=== PATIENT | female | born 1975 | race Caucasian/White ===

== ENCOUNTER 2016-12-17 00:51 | Inpatient (IN) ==
--- NOTE | 2016-12-17 01:15 | EKG Report ---
Test Performed on : 12/17/2016 00:57:13 AM Test Reason : CHEST PAIN Blood Pressure : / mmHG Vent. Rate : 084 BPM Atrial Rate : 084 BPM P-R Int : 168 ms QRS Dur : 084 ms QT Int : 368 ms P-R-T Axes : 047 055 042 degrees QTc Int : 434 ms Normal sinus rhythm. Low voltage QRS Borderline ECG When compared with ECG of 06-AUG-2016 08:54, No significant change was found Unconfirmed Result
[2016-12-17] MEDS ORDERED: SODIUM CHLORIDE 0.9% INJ ONE ×3 (01:29→13:54)
[2016-12-17] MEDS ORDERED: PEPCID IV ONE (01:29)
[2016-12-17] MEDS ORDERED: G.I. COCKTAIL PO ONE (01:29)
[2016-12-17] MEDS ORDERED: REGLAN IV ONE (01:31)
[2016-12-17] MEDS ORDERED: ZOFRAN IV ONE (01:32)
[2016-12-17 01:36] LABS: MANUAL DIFF NEEDED? NO
[2016-12-17 01:40] LABS: BASO% 0.4 % (0.0-0.8); EOS# 0.05 X1000 (0.0-0.7); EOS% 0.6 % (0.0-10.0); HEMATOCRIT 38.8 % (37.0-47.0); HEMOGLOBIN 12.9 g/dL (12.0-16.0); IMM GRAN# 0.01 X1000 (0.0-0.04); IMM GRAN% 0.1 % (0.0-0.5); LYMPH# 2.71 X1000 (1.2-3.4); LYMPH% 34.8 % (20.5-51.1); MCH 29.7 PG (27-31); MCHC 33.2 g/dL (33-37); MCV 89.2 FL (81-99); MONO% 7.7 % (1.7-9.3); MPV 9.9 FL (7.4-10.4); NEUT% 56.4 % (42.2-75.2); PLT 238 X1000 (130-400); RBC 4.35 XMIL (4.2-5.4)
[2016-12-17] MEDS ORDERED: NITROGLYCERIN TOP ONE (02:30)
[2016-12-17 02:36] LABS: AGAP 11; ALKALINE PHOSPHATASE 53 U/L (32-104); BUN 13 mg/dL (8-22); CALCIUM 8.9 mg/dL (8.8-10.2); CHLORIDE 104 mmol/L (98-107); CK PROFILE 66 U/L (24-173); GOT 26 U/L (10-30); GPT 27 U/L (10-36); MAGNESIUM 2.1 mg/dL (1.5-2.7); POTASSIUM 3.4 mmol/L (3.5-5.1); SODIUM 138 mmol/L (136-145); TCO2 23 mmol/L (25-35); TOTAL PROTEIN 6.7 g/dL (6.3-8.3)
[2016-12-17 02:48] LABS: COSMO 276
[2016-12-17] MEDS ORDERED: MAALOX PLUS LIQUID PO ONE (02:56)
[2016-12-17] MEDS ORDERED: MORPHINE IV ONE (02:57)
[2016-12-17] MEDS ORDERED: BENADRYL IV ONE (02:57)
--- NOTE | 2016-12-17 04:27 | EKG Report ---
Test Performed on : 12/17/2016 04:16:55 AM Test Reason : pain Blood Pressure : / mmHG Vent. Rate : 065 BPM Atrial Rate : 065 BPM P-R Int : 172 ms QRS Dur : 088 ms QT Int : 408 ms P-R-T Axes : 045 060 052 degrees QTc Int : 424 ms Normal sinus rhythm. Low voltage QRS Borderline ECG When compared with ECG of 17-DEC-2016 00:57, (Unconfirmed) No significant change was found Unconfirmed Result
[2016-12-17] MEDS ORDERED: MORPHINE IV PRN (05:18)
[2016-12-17] MEDS ORDERED: LR 1,000 ML IV ONE (05:18)
--- NOTE | 2016-12-17 05:18 | PROVIDER DOCUMENTATION ---
This chart was entered by Panchito Krueger Scribe, acting as scribe for Eric Lombardi MD. HPI-Abdominal Pain/GI Problem - General Chief Complaint: Chest Pain Stated Complaint: SOB/CHEST PAIN Time Seen by Provider: 12/17/16 01:15 Source: patient Allergies/Adverse Reactions: Patient Allergies Allergy/AdvReac Type Severity Reaction Status Date / Time acetaminophen Allergy ITCHING Verified 05/27/16 11:39 [From Darvocet-N] oxycodone HCl * Allergy ITCHING Verified 05/27/16 11:39 [From Percocet] propoxyphene napsylate * Allergy ITCHING Verified 05/27/16 11:39 [From Darvocet-N] Sulfa (Sulfonamide Allergy Unknown Verified 05/27/16 11:39 Antibiotics) tramadol Allergy PALPITATION Verified 05/27/16 11:39 S aspirin AdvReac VOMITING Verified 12/17/16 01:08 nitroglycerin AdvReac DROPS Verified 05/27/16 11:39 BLOOD PRESSURE TOO QUICKLY Home Medications: Home Medication List Medication Instructions Recorded Confirmed Last Taken Type Cyanocobalamin (Vitamin B-12) 1,000 mcg PO DAILY 07/04/15 12/17/16 08/04/16 09: 00 History [Vitamin B12] Omeprazole 40 mg PO DAILY #30 endy. 05/27/16 12/17/16 08/04/16 07:00 Rx L.acidoph,Paracasei, B.lactis 1 each PO DAILY 08/05/16 12/17/16 Unknown History [Probiotic] Levothyroxine [Synthroid] 150 microgm PO DAILY@0700 #30 08/07/16 12/17/16 Unknown Rx tablet Hydrocodone/Acetaminophen [[place]ity 1 tab PO PRN PRN 12/17/16 12/17/16 Unknown History 7.5-325 Tablet] Lorazepam 0.5 mg PO PRN PRN 12/17/16 12/17/16 Unknown History - History of Present Illness-ABD Abdominal Pain Onset Location: reports: epigastric Pain Radiation: reports: no radiation Quality of Pain: reports: aching Severity in ED: reports: mild Onset/Duration: denies: 3 days ago, 4 days ago Activities at Onset: reports: cold exposure Review of Systems - Adult - REVIEW OF SYSTEMS - ADULT Constitutional: reports: no symptoms reported Eyes: reports: no symptoms reported Ears, Nose, Mouth & Throat: reports: no symptoms reported Cardiovascular: reports: no symptoms reported Respiratory: reports: no symptoms reported Gastrointestinal: reports: abdominal pain Genitourinary: reports: no symptoms reported Musculoskeletal: reports: no symptoms reported Integumentary: reports: no symptoms reported Neurological: reports: no symptoms reported Psychiatric: reports: no symptoms reported Endocrine: reports: no symptoms reported Hematologic/Lymphatic: reports: no symptoms reported Allergic/Immunologic: reports: no symptoms reported All Other Systems: Reviewed and Negative Past History - Adult - PAST MEDICAL HISTORY-ADULT Review of Records: reports: Old Records Reviewed, Nursing Assessment Review, Medications Reviewed, Social history reviewed & non-contributory. 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) Respiratory: reports: denies history Gastrointestinal: reports: IBS, other (gastritis) Obstetrical/Gynecological: reports: denies history Genitourinary: reports: denies history Musculoskeletal: reports: fibromyalgia Neurological: reports: denies history Psychiatric: reports: anxiety Endocrine/Immune: reports: thyroid disorder (hyper) Other Conditions: reports: rosacea - PRIOR SURGERIES/PROCEDURES Surgical/Procedure History: reports: cholecystectomy, hysterectomy - PRIOR HOSPITALIZATIONS Prior Hospitalizations: reports: for similar symptoms ([facility] in [place], [place]) - IMMUNIZATION STATUS Childhood Immunizations: See Nurse Assessment Flu Vaccine: See Nurse Assessment - FAMILY HISTORY Family History: CAD under 55yo (mother experienced SD at age 40) Physical Exam-General - PHYSICAL EXAM-ADULT Initial Vital Signs Reviewed: Yes - CONSTITUTIONAL General Appearance: severe distress, obese - EYES Eyes: PERRL/EOMI, pink conjunctivae - HEAD, EARS, NOSE, MOUTH & THROAT HENMT: normocephalic/atraumatic, moist mucous membranes, normal ENT inspection - NECK Neck: non-tender, full range of motion - RESPIRATORY Respiratory: chest non-tender, lungs clear, normal breath sounds - CARDIOVASCULAR Cardiovascular: normal peripheral pulses, regular rate, rhythm, no edema, no gallop, no JVD - GASTROINTESTINAL (ABDOMEN) Abdominal Exam: normal bowel sounds, tenderness (severe epigastric) - LYMPHATIC Lymphatic: no adenopathy - MUSCULOSKELETAL Back Exam: no CVA tenderness, no vertebral tenderness Extremity: normal range of motion, non-tender, normal gait, normal inspection, no pedal edema - SKIN Integumentary: normal color, normal turgor, warm/dry - NEUROLOGIC Neurologic: grossly normal, no motor/sensory deficits - PSYCHIATRIC Psych/Mental Status: normal mood/affect, normal thought content, normal thought process, oriented x 3 Progress - PLAN OF CARE/RESULTS Progress/Plan/Lab Results: Vital Signs - 8 hr 12/17/16 01:00 Temperature 98.6 F Pulse Rate 89 Respiratory Rate 18 Blood Pressure 122/74 O2 Sat by Pulse Oximetry 98 Orders Category Date Time Status Cardiac Monitoring DIRECTED Care 12/17/16 01:12 Active Oxygen Therapy- ED Nursing DIRECTED Care 12/17/16 01:12 Active Saline Loc NOW Care 12/17/16 01:12 Active CHEST-2 VIEWS [RAD] Stat Exams 12/17/16 01:12 Ordered CBC WITH ELECTRONIC DIFF [HEME] Stat Lab 12/17/16 01:12 Ordered CK PROFILE [SP CHEM] Stat Lab 12/17/16 01:12 Ordered COMPREHENSIVE METABOLIC PANEL [CHEM] Stat Lab 12/17/16 01:12 Ordered MAGNESIUM [CHEM] Stat Lab 12/17/16 01:12 Ordered PRO B-NATRIURETIC PEPTIDE Stat Lab 12/17/16 01:12 Ordered TROPONIN T Stat Lab 12/17/16 01:12 Ordered Famotidine [Pepcid] Med 12/17/16 01:29 Discontinued 20 mg IV NOW ONE Lido/Cheema Alk/Al&mg Hydrox [G.i. Cocktail] Med 12/17/16 01:29 Discontinued 30 ml PO NOW ONE Sodium Chloride 0.9% Med 12/17/16 01:29 Discontinued 5 - 10 ml INJ NOW ONE EKG [EKG] Stat Ther 12/17/16 01:12 Draft Result Diagrams: 12/17/16 01:30 12/17/16 01:30 - EKG 1 Time of EKG reading by physician:: 00:57 EKG Interpretation (*Must complete 3 of following elements*): Normal Rate: 84 Rhythm: NSR Summers: normal QRS: normal CO Interval: normal ST Wave: normal 2 Time of EKG reading by physician:: 04:20 EKG Read and Signed by:: Eric Lombardi EKG Interpretation (*Must complete 3 of following elements*): Normal Rate: 65 Rhythm: nsr Summers: normal QRS: normal CO Interval: normal ST Wave: normal Prior EKG Comparison: unchanged from prior - XRAY 1 XRAY Study: Chest Impression: Normal XRAY Interpretation: NAD - CT/MRI 1 CT Study: Abdomen (mild peripancreatic fat induration suggesting mild acute pancreatitis. mild fatty infiltration liver) Departure - Departure Time of Disposition Decision: 05:14 DIAGNOSIS: Pancreatitis Qualifiers: Chronicity: acute Pancreatitis type: biliary Acute pancreatitis complication: no infection or necrosis Qualified Code(s): K85.10 - Biliary acute pancreatitis without necrosis or infection Disposition: ADMITTED INPATIENT 09 Certified Medical Emergency: Emergent Condition: Fair Referrals and Follow-Ups: Deepali Roy MD [Primary Care Provider] - This chart was documented by the indicated scribe, (Panchito Krueger Scribe) and accurately reflects the services I performed and decisions made by Harjit lind Kurt M., MD, as attested by the provider's signature.
--- NOTE | 2016-12-17 07:12 | Diag Imaging Result Document ---
PROCEDURE NAME: CHEST-2 VIEWS - 12/17/2016 FRONTAL AND LATERAL CHEST, TWO VIEWS: COMPARISON: Compared to 08/04/2016. FINDINGS: The lungs are well expanded. The heart is not enlarged. The vessels are not distended. No pneumonia. No pleural effusions. No free air beneath the diaphragm. Mild scoliosis. There are multiple surgical clips overlying the lower neck. IMPRESSION: No acute abnormality.
--- NOTE | 2016-12-17 09:02 | Diag Imaging Result Document ---
PROCEDURE NAME: ABDOMEN W/CONTRAST - 12/17/2016 CT ABDOMEN WITH INTRAVENOUS CONTRAST: A CT dose reduction protocol was used. COMPARISON: 07/26/2015. FINDINGS: There is probably some trace peripancreatic edema suggesting acute pancreatitis. No abnormal fluid collections or masses. Stable fatty change of the liver. Stable cholecystectomy changes. No biliary dilation. Spleen size measures 12.4 x 5.5 cm. Adrenals and kidneys are normal. No bowel obstruction or inflammation. The lung bases are clear and the heart size is normal. Bony structures are intact. IMPRESSION: 1. Mild acute pancreatitis. Correlate clinically. 2. Mild fatty change of the liver. MTDD
[2016-12-17] MEDS ORDERED: ATIVAN IV PRN (09:21)
[2016-12-17 10:02] LABS: HDL 51 mg/dL (45-65); LDL 98 mg/dL; TRIGLYCERIDES 60 mg/dL (35-135); VLDL 12 mg/dL
--- NOTE | 2016-12-17 10:16 | HISTORY AND PHYSICAL ---
PRIMARY CARE PHYSICIAN: Dr. Roy CHIEF COMPLAINT: Chest and abdomen pain. HISTORY OF PRESENT ILLNESS: Mrs. Zuñiga is a 41-year-old female with a history of anxiety, chronic pain, and hypothyroidism, who presents to [facility] with acute onset of midsternal and left upper quadrant abdominal pain that began at 12:30 this morning. She states that she woke up from sleep at 12:30 with the feeling that someone had hit her directly in the middle of the chest. She had severe pain and burning sensation which did radiate to the left side of her chest but also down into the left upper quadrant of her abdomen. This is associated with shortness of breath, nausea, vomiting, and diarrhea. She has had multiple bouts of emesis this morning. She denies any fevers or chills. No cough or congestion. No lower extremity edema and no orthopnea. She was at [facility], [place] in August of last year for essentially the same thing. At that time she had a cardiology consult and had multiple tests done including a myocardial perfusion scan as well as coronary CT, all of which were negative and her calcium score was 0. Today when she came to the ER, labs and diagnostics were essentially within normal limits. She had a mildly elevated bilirubin and hypokalemia. Vital signs are stable. A CT of the abdomen done in [place] did show a suggestion of mild peripancreatic fat stranding suggestive of acute pancreatitis. Her lipase is well within normal limits. She was transferred to our facility for further treatment and evaluation. PAST MEDICAL HISTORY: 1. Hypothyroidism. 2. History of H. pylori positive. 3. Rosacea. 4. Degenerative disk disease. 5. Anxiety. SURGICAL HISTORY: Hysterectomy, thyroidectomy, cholecystectomy. SOCIAL HISTORY: Patient denies tobacco, alcohol, or drug use. She is . She has 4 children. 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 FAMILY HISTORY: Father from cirrhosis of the liver. Mother is still alive. She has a significant history of coronary disease, 1st diagnosed at 39 years old. REVIEW OF SYSTEMS: Fourteen-point review of systems obtained and found to be negative with the exception of the HPI. ALLERGIES: Darvocet, Percocet, sulfa, tramadol, aspirin, nitroglycerin. HOME MEDICATIONS: Vitamin B12 1000 mcg p.o. daily, Synthroid 137 mcg p.o. daily, probiotic 2 daily, omeprazole 40 mg daily, Ativan 0.5 mg 1 mg p.o. twice a day as needed, [place] 1 tab daily as needed for pain. PHYSICAL EXAMINATION: VITAL SIGNS: Blood pressure 91/44, heart rate 55, respiratory rate 16, O2 saturation 98% on room air, temperature is 98.4 degrees. GENERAL: This is a morbidly obese, female, lying in hospital bed, in no acute distress. NEUROLOGIC: The patient is awake, alert, oriented. She follows commands without focal deficits. HEENT: Head is atraumatic, normocephalic. Her pupils are equal, round, reactive to light. Oral mucosa is moist. Trachea is midline. No JVD or carotid bruits. CHEST: Clear to auscultation bilaterally. CV: Regular rate and rhythm. S1, S2 is noted. No murmurs, gallops, clicks, rubs. GI: Significant epigastric and left upper quadrant tenderness to palpation. Belly is overall soft and nondistended. Bowel sounds are positive. EXTREMITIES: Without edema, clubbing or cyanosis. Pulses are palpable bilaterally. DIAGNOSTIC DATA: Chest x-ray shows no acute abnormality. EKG: Normal sinus rhythm without acute ST or T abnormalities. Abdomen and pelvis CT does show mild acute pancreatitis and mild fatty changes of the liver. WBC is 7.79, hemoglobin 12.9, hematocrit 38.8, platelet count 238,000. Sodium 138, potassium 3.4, chloride 104, CO2 23, anion gap 11, BUN 13, creatinine 0.6, glucose 94, calcium 8.9, bilirubin 1.8, magnesium 2.1. AST 26, ALT 27, alkaline phosphatase 53. Troponin negative x2 sets. Lipase 31. ASSESSMENT AND PLAN: 1. Chest and abdominal pain: Mild pancreatitis is likely her source of pain. However, would not rule out gastritis or peptic ulcer disease. GI has been consulted and will keep the patient NPO. Will continue IV fluids, pain medication, and antiemetics. We have also started Protonix b.i.d. IV. Hopefully symptoms will subside within 24 hours and she will be able to go home. 2. Hypothyroidism: We are going to hold all her medications for now and check thyroid function. 3. Anxiety/chronic pain: Overall stable. Will continue pain medications and IV Ativan as needed for anxiety. 4. Hypokalemia: Will add some potassium and recheck in the morning. Magnesium is within normal limits. 5. Atypical chest pain: Please see #1. We are going to rule out myocardial infarction with cardiac enzymes. She has had a full cardiac workup which was completely negative less than 6 months ago. So, this is unlikely to be the source of her pain but we will monitor telemetry and trend her enzymes. 6. Deep vein thrombosis prophylaxis with Lovenox. Further recommendations to follow. Dictated by ROXANE Christina for Ciara Christensen MD cc: ROXANE Christina MD Bhavna Gowda, MD
[2016-12-17] MEDS: PROTONIX IV SCH ×2 (10:28→23:50)
[2016-12-17] MEDS: SODIUM CHLORIDE 0.9% INJ SCH (10:28)
[2016-12-17] MEDS: ZOFRAN IV PRN ×3 (10:28→23:58)
[2016-12-17] MEDS: LOVENOX SUBQ SCH (10:29)
[2016-12-17] MEDS: DILAUDID IV PRN ×4 (10:29→23:57)
[2016-12-17 11:05] LABS: FREE T4 0.94 ng/dL (0.93-1.70)
[2016-12-17] MEDS ORDERED: SYNTHROID IV ONE (13:34)
[2016-12-17] MEDS ORDERED: ATIVAN PO PRN (13:35)
[2016-12-17] MEDS ORDERED: NORCO-7.5 PO PRN (13:35)
[2016-12-17] MEDS ORDERED: KLOR-CON PO ONE (13:37)
[2016-12-17] MEDS ORDERED: PHENERGAN IV ONE (13:54)
[2016-12-17] MEDS: NS 1,000 ML IV SCH (16:03)
[2016-12-17] MEDS: SYNTHROID PO SCH (16:06)
[2016-12-17] MEDS: FOLIC ACID PO SCH (16:09)
--- NOTE | 2016-12-17 17:19 | Diag Imaging Result Document ---
PROCEDURE NAME: US ABDOMEN-COMPLETE - 12/17/2016 COMPARISON: CT abdomen with contrast earlier 12/17/2016. FINDINGS: There is severe fatty change of the liver. Gallbladder is absent. No biliary dilation. The common bile duct measures 5 mm. The pancreas is obscured. Spleen size measures 12.4 x 12.4 x 5.4 cm. Both kidneys are normal. Aorta, IVC and main portal vein are patent. IMPRESSION: Severe fatty change of the liver. Otherwise unremarkable.
--- NOTE | 2016-12-17 18:14 | CONSULTATION ---
DATE OF CONSULTATION: 12/17/2016 REFERRING PHYSICIAN: José Miguel Salgado MD PRIMARY CARE DOCTOR: Deepali Roy MD REASON FOR CONSULTATION: Abdominal pain and CT scan showing evidence of pancreatitis. HISTORY OF PRESENT ILLNESS: Ms. Zuñiga is a 41-year-old male female who has a history of intraabdominal pain in the periumbilical, epigastric and left upper quadrant going on for 1 year. She had a cholecystectomy done in June 2015. Ever since that, a few months after, she has been having intermittent abdominal pain. She had an EGD done by Dr. Blankenship a year ago which was suggestive of reflux disease. She continued to have abdominal symptoms. She was given a trial of Librax which she did not tolerate. This morning around 12:30 a.m., she woke up from deep sleep with symptoms of pain in the epigastric region, left upper quadrant and lower chest region, which she describes as burning-type pain radiating to her chest from the back. She denied any previous predisposing factors. She denied any sick contacts. Along with abdominal pain, she had nausea, intermittent vomiting and diarrhea. She denied noticing blood in the stools. She denied noticing any blood in the vomitus. She had a CT scan done in the hospital which showed evidence of mild pancreatitis in the form of mild peripancreatic fat stranding. Her lipase was noted to be normal though. She denies any previous history of pancreatitis. She denies history of alcohol abuse. No family history of pancreatitis and no history of any new medications. PAST MEDICAL HISTORY: Hypothyroidism, history of H. pylori, rosacea, degenerative disk disease, anxiety, chronic pain on [place]. PAST SURGERY HISTORY: Hysterectomy. Thyroidectomy. EGD a year ago by Dr. Blankenship. SOCIAL HISTORY: She denies any history of tobacco, alcohol or illicit drugs. She is . She has 4 children. 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 FAMILY HISTORY: Father from cirrhosis of the liver. Mother is still alive. She has a significant family history of coronary artery disease. A 1st cousin dying at age 40 years. REVIEW OF SYSTEMS: She denies any current fevers, rigors, chills, chest pain today. Denies any shortness of breath, or PND, orthopnea. Does complain of nausea and vomiting since morning. Denied any previous history of constipation or any blood in the stools or black stools. Denies any history of vomiting blood. Her abdominal pain is getting better. She denies any new genitourinary or musculoskeletal complaints. ALLERGIES: Darvocet. Percocet. Sulfa. Tramadol. Aspirin. Nitroglycerin. MEDICATIONS AT HOME: Vitamin B12 1000 mcg p.o. daily. Synthroid 137 mcg p.o. daily. Probiotic 2 daily. Omeprazole 40 mg daily. Ativan 0.5-1 mg p.o. twice daily. [place] 1 tablet p.o. as needed for pain. MEDICATIONS IN THE HOSPITAL: Lovenox, Dilaudid, Ativan, lactated Ringer 120 mL/hour. Zofran. Protonix. She is currently nothing per oral. PHYSICAL EXAMINATION: Vital signs: Temperature of 98.4 degrees, pulse rate 55, respiratory rate 16, blood pressure of 91/44, saturating 98% on room air. Body weight of 265 pounds. BMI 44.1 kg. General: Patient is obese, lying in bed, in no acute distress. HEENT: No pallor. No icterus. Pupils equal, react to light. Neck: Supple. Chest: Decreased breath sounds. Cardiac: Regular rhythm. No murmur. Abdomen: Mild discomfort in the epigastric region. No rebound, no guarding. Bowel sounds are present. Obesity. Liver edges not able to be felt. Extremities: No cyanosis, clubbing, edema. Neurologic: Alert, awake, oriented. LABORATORY: Hemoglobin and hematocrit is 12.9 and 38.8, white count of 7.7, platelet count of 238,000, MCV of 89.2. D-dimer is 0.1. Her troponin is less than 0.01. Triglycerides 60, LD of 98, VLDL 12, HDL 51, folate of 2.3. B12 of 250. TSH is 26.38. Sodium 138, potassium 3.4, chloride 104, bicarb 23, anion gap 11, BUN of 13, creatinine 0.6, glucose of 94, calcium 8.9. Total bilirubin is 1.8. AST 26, ALT 27, alkaline phosphatase 58, total protein 6.7, albumin of 4. Lipase of 31. IMAGING: Abdomen CT on 12/17/2016 showed probably some trace peripancreatic edema suggesting acute pancreatitis. No abnormal fluid collections or masses noted. Stable fatty change of the liver. Stable cholecystectomy changes. No biliary dilation. Spleen size 12.4 x 5.5 cm. Adrenals and kidneys are normal. No bowel obstruction or inflammation. IMPRESSION AND PLAN: 1. Acute pancreatitis per the CT scan, but lipase is normal. We will need to follow up the lipase daily. It may go up tomorrow. 2. Reflux disease. 3. Obesity. 4. Nausea, vomiting. RECOMMENDATIONS: 1. Put the patient on intravenous fluids, intravenous proton pump inhibitors, intravenous antiemetics, intravenous pain control. 2. We will check ultrasound of the abdomen to evaluate for any kind of retained common bile duct stones. 3. We will keep the patient on bowel regimen. 4. We will start patient on clear liquid diet today. 5. We will check the serum amylase and lipase tomorrow. We will also send IgG4 levels to evaluate autoimmune pancreatitis. Her LDL and triglyceride levels are normal. Her home medication list does not show any evidence of potential pancreatotoxic agents. 6. We will follow up during her hospitalization. If her symptoms persist and ultrasound is negative, we may need to do magnetic resonance cholangiopancreatography. The above plan of care was discussed with the patient and all questions answered. cc: MD José Miguel Carter MD Bhavna Gowda, MD
[2016-12-17] MEDS: PERICOLACE PO SCH (23:50)
[2016-12-18] MEDS: DILAUDID IV PRN ×5 (05:30→20:58)
[2016-12-18] MEDS: NS 1,000 ML IV SCH ×2 (05:40→16:40)
[2016-12-18] MEDS: SYNTHROID PO SCH (06:11)
[2016-12-18] MEDS: ZOFRAN IV PRN ×4 (09:24→22:01)
[2016-12-18] MEDS: CULTURELLE PO SCH (09:27)
[2016-12-18] MEDS: LOVENOX SUBQ SCH (09:27)
[2016-12-18] MEDS: VITAMIN B-12 PO SCH (09:27)
[2016-12-18] MEDS: FOLIC ACID PO SCH (09:27)
[2016-12-18] MEDS: PROTONIX IV SCH ×2 (09:28→20:57)
[2016-12-18] MEDS: PERICOLACE PO SCH ×2 (09:28→20:57)
[2016-12-18 10:22] LABS: HEMATOCRIT 36.8 % (37.0-47.0); HEMOGLOBIN 12.1 g/dL (12.0-16.0); MCH 29.9 PG (27-31); MCHC 32.9 g/dL (33-37); MCV 90.9 FL (81-99); MPV 9.9 FL (7.4-10.4); RBC 4.05 XMIL (4.2-5.4)
[2016-12-18 11:28] LABS: INR 0.99; PROTIME 10.4 Seconds (9.2-11.7)
[2016-12-18 12:02] LABS: AGAP 12; BUN 6 mg/dL (8-22); CALCIUM 8.2 mg/dL (8.8-10.2); CHLORIDE 101 mmol/L (98-107); COSMO 269; HDL 49 mg/dL (45-65); LDL 99 mg/dL; LIPASE 20 U/L (13-60); POTASSIUM 3.9 mmol/L (3.5-5.1); SODIUM 136 mmol/L (136-145); TCO2 23 mmol/L (25-35); TRIGLYCERIDES 78 mg/dL (35-135); VLDL 16 mg/dL
--- NOTE | 2016-12-18 15:59 | PROGRESS NOTE ---
DATE: 12/18/2016 SUBJECTIVE: The patient states that she could not tolerate clear liquids. She stated that just drinking water resulted in excruciating epigastric pain. OBJECTIVE: Vital Signs: Temperature 97.8 degrees, blood pressure 110/57, heart rate 70, respirations 20, O2 saturations 93% on room air. General: This is a morbidly obese female, lying in bed, in no acute distress. Head: Normocephalic, atraumatic. Heart: S1, S2. Normal. Regular rate and rhythm. Lungs: Clear to auscultation bilaterally. Abdomen: Positive bowel sounds. Soft. Positive for epigastric tenderness. Extremities: No edema. No cyanosis. No calf tenderness. Neurologic: The patient is alert and oriented x3. LABORATORY: Lipase 20, calcium 8.2, glucose 80, sodium 136, potassium 3.9. White blood cell count 5.5, platelets 214,000. ASSESSMENT AND PLAN: 1. Acute pancreatitis. Continue with supportive care. Continue on IV fluids, p.r.n. antiemetics and p.r.n. pain medication. Gastroenterology is following. 2. Severe fatty liver disease. Aware. Gastroenterology is following. 3. Morbid obesity. Aware. 4. Hypothyroidism. Continue on Synthroid. 5. Deep vein thrombosis prophylaxis. Continue on Lovenox. cc: Ciara Christensen MD
[2016-12-18] MEDS: SODIUM CHLORIDE 0.9% INJ SCH (20:58)
[2016-12-19] MEDS: DILAUDID IV PRN ×5 (04:32→20:51)
[2016-12-19] MEDS: ZOFRAN IV PRN ×3 (04:32→16:15)
[2016-12-19] MEDS: NS 1,000 ML IV SCH ×2 (04:38→20:50)
[2016-12-19] MEDS: SYNTHROID PO SCH (06:04)
[2016-12-19 08:41] LABS: AGAP 15; BUN 6 mg/dL (8-22); CALCIUM 8.8 mg/dL (8.8-10.2); CHLORIDE 100 mmol/L (98-107); COSMO 268; POTASSIUM 3.9 mmol/L (3.5-5.1); SODIUM 136 mmol/L (136-145); TCO2 21 mmol/L (25-35)
[2016-12-19 08:52] LABS: HEMATOCRIT 37.2 % (37.0-47.0); HEMOGLOBIN 12.2 g/dL (12.0-16.0); MCH 29.3 PG (27-31); MCHC 32.8 g/dL (33-37); MCV 89.4 FL (81-99); MPV 10.6 FL (7.4-10.4); RBC 4.16 XMIL (4.2-5.4)
[2016-12-19] MEDS: LOVENOX SUBQ SCH (09:52)
[2016-12-19] MEDS: PERICOLACE PO SCH ×2 (09:52→20:51)
[2016-12-19] MEDS: PROTONIX IV SCH ×2 (09:53→20:51)
[2016-12-19] MEDS: FOLIC ACID PO SCH (09:53)
[2016-12-19] MEDS: CULTURELLE PO SCH (09:53)
[2016-12-19] MEDS: VITAMIN B-12 PO SCH (09:53)
[2016-12-19] MEDS: SODIUM CHLORIDE 0.9% INJ SCH ×2 (09:54→20:51)
--- NOTE | 2016-12-19 12:46 | PROGRESS NOTE ---
DATE: 12/19/2016 SUBJECTIVE: The patient continues to complain of epigastric pain. She states that she is not really hungry and has been requiring the pain medication pretty frequently. OBJECTIVE: Vital Signs: Temperature 98 degrees, blood pressure 104/57, heart rate 62, respirations 18, O2 saturation is 97% on room air. General: This is a morbidly obese, middle- aged female, lying in bed, in no acute distress. Head: Normocephalic, atraumatic. Heart: S1, S2. Normal. Regular rate and rhythm. Lungs: Clear to auscultation bilaterally. No wheezes. No rales. No rhonchi. Abdomen: Positive bowel sounds. Soft, nontender, nondistended. Extremities: No edema. No cyanosis. Neurologic: The patient is alert and oriented x3. LABS: White blood cell count 5.2. Sodium 136, potassium 3.9, chloride 100, CO2 21, BUN 6, creatinine 0.6, glucose 69. ASSESSMENT AND PLAN: 1. Acute pancreatitis. Continue on IV fluids, p.r.n. antiemetics, and p.r.n. pain medication. 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 2. Morbid obesity. Aware. 3. Hypothyroidism. Continue on Synthroid. 4. Severe fatty liver disease. Aware. 5. Folate deficiency. Continue on folic acid replacement. 6. Deep vein thrombosis prophylaxis. Continue on Lovenox. 7. Consult physical therapy. cc: Ciara Christensen MD
--- NOTE | 2016-12-19 13:39 | PROGRESS NOTE ---
DATE: 12/19/2016 SUBJECTIVE: Patient is currently resting in bed. She complains of epigastric pain after eating and it goes all the way to the right upper quadrant, left upper quadrant. She has been intermittently nauseous. Her last BET test was done in the office in August 2016 and was negative for H. pylori. She has never had a colonoscopy in the past. Her amylase and her pancreas enzymes are normal since admission, the lipase is like 20. Her IgG 4 level was also normal. Her brother and [id number] are present at bedside. She denies any vomiting blood or passing blood in the stools. She had a small liquid stool this morning. She denies any fevers, rigors, chills.Vital signs: Temperature 98, pulse rate of 62, respiratory rate 18, blood pressure 104/57, saturating 98% on room air. General: She is obese, lying in bed, no acute distress. HEENT: No pallor. No icterus. Pupils equal, react to light. Neck: Supple. Abdomen: Discomfort in the epigastrium. No rebound. No guarding. Liver and spleen could not be felt because of body habitus. Extremities: No cyanosis, clubbing, edema. Neurologic: She is alert, awake, oriented. LABS: Hemoglobin and hematocrit is 12.2 and 37.2, white count of 5.2, platelet count of 234,000, MCV of 99.4. Sodium 132, potassium 3.9, chloride 100, bicarb 20, anion gap 15. BUN of 6, creatinine 0.6, glucose of 69, calcium 8.8, magnesium is 2. Her triglycerides are 78, lipase of 20. IgG 4 level is normal at 18.2. Abdominal ultrasound done on 12/17/2016 showed severe fatty change of the liver. Otherwise unremarkable. The common bile duct measuring 5 mm. The spleen size is 12.4 and 12.4 and a 5.4 cm. Both kidneys are normal. The gallbladder is absent. No biliary dilation. IMPRESSION/PLAN: 1. Epigastric periumbilical pain radiating to the right upper quadrant, left lower quadrant going on for the last 3 days with minimal relief. I suspect could be peptic ulcer disease or any kind of colon pathology. In this regard we will schedule the patient for EGD and colonoscopy tomorrow. We will continue IV fluids, IV antiemetics and IV PPIs for now. 2. Fatty liver disease. She will continue to work on losing weight. This is discussed with the family and the patient. 3. Hypothyroidism. Continue on Synthroid. 4. GI prophylaxis with PPIs and DVT prophylaxis with Lovenox. Will hold Lovenox for tomorrow. 5. The above plan discussed with the patient and family and all questions answered. cc: MD Ciara Carter MD
[2016-12-19] MEDS ORDERED: GOLYTELY PO ONE (14:00)
[2016-12-20] MEDS: DILAUDID IV PRN (00:15)
[2016-12-20] MEDS: ZOFRAN IV PRN (00:15)
[2016-12-20 06:58] LABS: MANUAL DIFF NEEDED? NO
[2016-12-20 07:02] LABS: BASO% 0.2 % (0.0-0.8); EOS# 0.05 X1000 (0.0-0.7); HEMATOCRIT 36.7 % (37.0-47.0); HEMOGLOBIN 12.2 g/dL (12.0-16.0); LYMPH% 40.5 % (20.5-51.1); MCH 29.9 PG (27-31); MCHC 33.2 g/dL (33-37); MONO% 7.7 % (1.7-9.3); NEUT% 50.6 % (42.2-75.2); PLT 221 X1000 (130-400); RBC 4.08 XMIL (4.2-5.4)
[2016-12-20 07:07] LABS: INR 1.02; PROTIME 10.7 Seconds (9.2-11.7); PTT 35.7 Seconds (22.0-36.0)
[2016-12-20 07:20] LABS: AGAP 14; ALBUMIN 3.6 g/dL (3.5-5.0); ALKALINE PHOSPHATASE 54 U/L (32-104); BUN 6 mg/dL (8-22); CALCIUM 8.4 mg/dL (8.8-10.2); CHLORIDE 102 mmol/L (98-107); COSMO 276; GOT 27 U/L (10-30); GPT 25 U/L (10-36); POTASSIUM 3.8 mmol/L (3.5-5.1); SODIUM 140 mmol/L (136-145); TCO2 24 mmol/L (25-35); TOTAL PROTEIN 6.7 g/dL (6.3-8.3)
[2016-12-20] MEDS ORDERED: FENTANYL ONE (10:40)
[2016-12-20] MEDS ORDERED: DIPRIVAN 1% ONE (10:41)
[2016-12-20] MEDS ORDERED: LR 1,000 ML ONE (10:44)
[2016-12-20] MEDS ORDERED: ANESTHESIA PB SET 88 IN 5742 ONE (10:44)
[2016-12-20] MEDS ORDERED: XYLOCAINE-MPF 2% ONE (10:44)
[2016-12-20] MEDS: SYNTHROID PO SCH (10:57)
[2016-12-20] MEDS: PROTONIX IV SCH ×3 (10:58→16:56)
[2016-12-20] MEDS: SODIUM CHLORIDE 0.9% INJ SCH ×2 (10:59→16:57)
[2016-12-20] MEDS: NS 1,000 ML IV SCH (12:46)
--- NOTE | 2016-12-20 13:13 | Diag Imaging Result Document ---
PROCEDURE NAME: MRI ABDOMEN W/WO CONTRAST - 12/20/2016 MRI ABDOMEN WITHOUT AND WITH INTRAVENOUS CONTRAST: COMPARISON: 12/17/2016. FINDINGS: The gallbladder is absent. The liver, pancreas, spleen, kidneys and adrenals are normal. No abnormal mass or fluid collection. The common bile duct is normal. The main pancreatic duct is completely collapsed and normal in anatomy. No evidence of stones or obstruction. No abnormal fluid collections. IMPRESSION: Negative exam.
[2016-12-20] MEDS: VITAMIN B-12 PO SCH ×2 (14:02→16:58)
[2016-12-20] MEDS: PERICOLACE PO SCH ×2 (14:04→16:59)
[2016-12-20 14:06] VITALS: BP 106/61
[2016-12-20] MEDS: LOVENOX SUBQ SCH (14:07)
--- NOTE | 2016-12-20 16:15 | PROGRESS NOTE ---
DATE: 12/20/2016 SUBJECTIVE: The patient has just returned from an EGD. She does complain of abdominal pain. OBJECTIVE: Vital Signs: Temperature 97. Blood pressure 106/61, heart rate 82, respirations 21, O2 saturations 98% on room air. General: This is a morbidly obese female, lying in bed, in no acute distress. Head: Normocephalic atraumatic. Heart: S1, S2. Normal. Regular rate and rhythm. Lungs: Clear to auscultation bilaterally. No wheezes, no rales. No rhonchi. Abdomen: Positive bowel sounds. Soft, nontender, nondistended. Extremities: No edema. No cyanosis. No calf tenderness. Neurologic: The patient is alert and oriented x3. LABS: Unremarkable. ASSESSMENT AND PLAN: 1. Gastritis. Continue on Protonix. 2. Mild pancreatitis. Improved. 3. Morbid obesity. Aware. 4. Folate deficiency. Continue on folic acid. 5. Hypothyroidism. Continue on Synthroid. 6. Disposition. We will plan to discharge the patient home tomorrow if she can tolerate her diet today. cc: Ciara Christensen MD
[2016-12-20] MEDS: CULTURELLE PO SCH (16:57)
[2016-12-20] MEDS: FOLIC ACID PO SCH (16:58)
[2016-12-20] MEDS ORDERED: MIRALAX PO SCH (21:00)
--- NOTE | 2016-12-20 22:24 | OPERATIVE NOTE ---
PROCEDURE DATE: 12/20/2016 TITLE OF THE PROCEDURE: 1. Esophagogastroduodenoscopy with biopsy. 2. Ileal colonoscopy. PREOPERATIVE DIAGNOSES: 1. Unexplained abdominal pain at the periumbilical region going on for since last Saturday for the last 5 days with no relief. 2. CT scan initially showed evidence of pancreatitis but normal amylase and lipase during the hospital stay. Never had any bump in the amylase and lipase. 3. Ultrasound negative for any kind of CBD stones. 4. Obesity. Has in history lost close to 100 pound in the last 1 year. 5. Chronic reflux disease. 6. Anxiety. 7. History of H. pylori in the last year. Negative H. pylori breath test in August 2016. 8. Never had a colonoscopy. 9. Mild change in bowel habits. POSTOPERATIVE DIAGNOSES: 1. Normal esophagus. 2. Z-line visualized at 37 cm. 3. Hiatal hernia 1 cm sliding type. 4. Gastritis in the body and antrum status post biopsy. 5. Normal fundus, cardia, and fundus. 6. Normal duodenal bulb and second portion. 7. Normal terminal ileum. 8. Stool in the colon, thick liquid, which was lavaged. 9. Internal hemorrhoids on retroflexion grade 2. 10. No evidence of any colitis. ESTIMATED BLOOD LOSS: Minimal. COMPLICATIONS: None. ANESTHESIA: Monitored anesthesia care SPECIMENS COLLECTED: Random Gastric Biopsy SURGICAL PROCEDURE: After informed consent, patient explained the risks, benefits, indications, alternatives, the patient was prepared for EGD and colonoscopy. The patient was brought to the OR. She was turned on the left lateral position. A bite block was placed in patient's mouth. After adequate monitored anesthesia care, the EGD scope was introduced through the oral orifice and traversed to the second portion of the duodenum. The esophagus was normal the entire length. The Z-line was at 37 cm. There is a mild erythema at the GE junction suggesting mild esophagitis but no ulcerations. Hiatal hernia was noted, 1 cm sliding type. There was evidence of mild gastritis in the body and antrum. This was biopsied to rule out H. pylori. Retroflexion revealed normal fundus, cardia, incisura. The duodenal bulb and second portion of the duodenum appeared normal. The scope was withdrawn into the stomach. The air was withdrawn. The patient underwent a rectal exam, which revealed normal duct. No masses felt. The colonoscope was gently introduced to the anal verge and advanced all the way to the terminal ileum. Terminal ileum was normal. The entire colon was normal other than stool in the colon. Thick liquid throughout the colon which was lavaged. There was no evidence of any underlying colonic inflammation or colitis. There were not any polyps noted. Retroflexion in the rectum revealed internal hemorrhoids. There was evidence of tortuosity of the left colon likely from prior history of surgeries of hysterectomy and cholecystectomy. There was no evidence of any active bleeding, fresh or old blood in the entire colon. The air was withdrawn. The patient tolerated this well and monitored in the OR in stable condition. I discussed the findings with the patient and her family and all questions were answered. RECOMMENDATIONS: 1. The patient will be on gastroesophageal reflux lifestyle changes. Avoid excessive tea, coffee, soda, tomatoes, onions, spicy foods. 2. The patient to continue on Prilosec 40 mg daily for 3 months and then transition down to Zantac 150 mg at bedtime as needed. 3. The patient will continue to lose weight as intends to get to the ideal body weight. 4. The patient has constipation. MiraLAX 17 g twice daily and hold for more than 3 bowel in 24 hours. She will also need to cut down the dose of narcotics. 5. The patient had some pancreatic head inflammation on CT scan although the amylase and lipase was normal during the hospital stay. An ultrasound was also negative and IgG 4 level was normal. Lipids and triglycerides are normal. Calcium level is normal. So we will check MRI of the pancreas to evaluate for any pancreas pathology. I believe the patient most likely had a viral gastroenteritis caused her abdominal pain, cramping and nausea vomiting. We will follow up in the office in 3 weeks. All the above plan discussed with the patient and the family and all questions answered. cc: MD Ray Lundy MD MTDD
--- NOTE | 2016-12-29 18:28 | DISCHARGE SUMMARY ---
ADMISSION DATE: 12/17/2016 DISCHARGE DATE: 12/20/2016 DISCHARGE DIAGNOSES: 1. Gastritis. 2. Mild pancreatitis. 3. Morbid obesity. 4. Folate deficiency. 5. Hypothyroidism. CONSULTATIONS REQUESTED DURING THIS HOSPITAL STAY: GI consultation with Dr. Diehl. PROCEDURES PERFORMED DURING THIS HOSPITAL STAY: 1. EGD with biopsy performed on 12/20/2016 that revealed gastritis. 2. Ileal colonoscopy which revealed internal hemorrhoids. HOSPITAL COURSE: Ms. Zuñiga is a 41-year-old, morbidly obese female who presented to the ER with abdominal pain as well as nausea and vomiting. On admission, the patient's lipase was noted to be normal. A CT of the abdomen and pelvis did reveal mild pancreatitis. GI was consulted. It was recommended that the patient undergo endoscopy for further workup. The patient underwent an EGD and colonoscopy on 12/20/2016 and that revealed gastritis as well as internal hemorrhoids that were seen on the colonoscopy. Following the procedures the patient stated that she felt a lot better and stated that she wanted to go home. The patient was also noted to be vitamin D deficient and was started on vitamin D replacement during the hospitalization. DISCHARGE MEDICATIONS: 1. Folic acid 1 mg oral daily. 2. Zofran 4 mg p.o. every 6 hours p.r.n. for nausea. 3. Vitamin B12, 1000 mcg oral daily. 4. Omeprazole 40 mg p.o. daily. 5. Probiotic 2 tabs oral daily. 6. Ativan 1 mg p.o. daily p.r.n. 7. Garner 7.5/325, 1 tab oral 3 times a day p.r.n. 8. Synthroid 137 mcg oral daily. DISCHARGE DIET: Low-sodium diet. ACTIVITY: As tolerated. FOLLOWUP INSTRUCTIONS: 1. The patient will need to follow up with Dr. Diehl in 3 weeks. 2. The patient will need to follow up with her primary care physician in 1 week. cc: Ciara Christensen MD
--- NOTE | 2017-01-13 12:09 | PROGRESS NOTE ---
DATE: 01/13/2017 SUBJECTIVE: The patient is resting in bed. Still complaining about epigastric pain but only after eating and it is going all the way to the right upper quadrant and then nauseous and LFTs remain normal. Objective: HEENT: No pallor. No icterus. Pupils: Reacting to light. Neck: Supple. Abdomen: Obese. Discomfort in the epigastrium. No rebound or rigidity. Extremities: Unremarkable. Vital signs are completely stable and afebrile. LABORATORY: Hemoglobin and hematocrit 12.2 and 37.2, white count 5.2, platelets are normal. BUN and creatinine normal. Glucose normal. Magnesium is 2. Triglycerides are 78, lipase normal. The abdominal ultrasound yesterday showed fatty liver, otherwise unremarkable. Common bile duct 5 mm. Gallbladder is absent. IMPRESSION: 1. Epigastric and periumbilical pain with radiation. Questionable pancreatitis. Continued abdominal pain with negative labs and negative ultrasound. 2. Fatty liver disease secondary to massive obesity. 3. Hypothyroidism. Continue Synthroid. 4. Gastrointestinal prophylaxis with a PPI and DVT prophylaxis. 5. Obesity. PLAN: Continue managing endoscopy is insignificant. Dr. Diehl is following this closely. No additional recommendations at at this time. cc: Bridgett Blankenship MD
== END 2016-12-20 19:50 | disposition home or self-care (01) ==
LOC: P.ED 00:51 → SUATTDRO 05:26 → 4N 05:26 → 3N 05:53
PROVIDERS: ATTEND Internal Medicine